=== PATIENT | male | born 1955 | race Caucasian/White ===

== ENCOUNTER 2021-01-06 11:45 | Emergency (ER) | payer MEDICARE ==
[~2021-01-06] VITALS: Ht 175.3 cm; Wt 98.9 kg
[2021-01-06] MEDS ORDERED: PRESERVISION A1 EACH (12:18)
[2021-01-06] MEDS ORDERED: LOSARTAN POTASS25 MG PO (12:18)
[2021-01-06] MEDS ORDERED: CLOPIDOGREL75 MG PO (12:18)
[2021-01-06] MEDS ORDERED: MULTI-VITAMIN1 EACH PO (12:18)
[2021-01-06] MEDS ORDERED: MORPHINE SULFAT30 M2 PO (12:18)
[2021-01-06] MEDS ORDERED: ATORVASTATIN CA20 MG PO (12:18)
[2021-01-06] MEDS ORDERED: ASPIRIN EC81 MG PO (12:18)
[2021-01-06] MEDS ORDERED: DOXYCYCLINE HY100 MG PO (12:24)
[2021-01-06] MEDS ORDERED: PROBIOTIC & AC1 EACH PO (12:24)
[2021-01-06] MEDS ORDERED: CLEOCIN HCL300 MG PO (12:24)
== END 2021-01-06 12:37 | disposition home or self-care (01) ==
LOC: EDSEX 11:45 → FSED 12:16
DX: L03.116 Cellulitis of left lower limb (principal); C22.8 Malignant neoplasm of liver, primary, unspecified as to type
CPT/HCPCS: 99283